=== PATIENT | male | born 1980 | race Caucasian/White ===

== ENCOUNTER → 2020-09-13 08:39 | Outpatient (CLI) | payer BC, SELFPAY ==
--- NOTE | ~2020-09-13 | MR_ITS ---
EXAMINATION: MR knee RT wo con DATE: 09/13/2020 09:15 INDICATION: Right knee pain TECHNIQUE: Magnetic resonance imaging (MRI) of the right knee was performed without intravenous contr ast. Sequences included coronal PD-weighted FSE, coronal PD-weighted FS FSE, sagittal T2-weighted FS E, sagittal PD-weighted FS FSE and axial PD weighted fat saturated FSE. COMPARISON: None. FINDINGS: Medial compartment: Longitudinal horizontal tear extending to the inferior articular surface of the body and posterior ho rn of the medial meniscus. There is a multilobulated para meniscal cyst extending approximately 3.4 c m medial to lateral along the posterior margin of the posterior horn and measuring up to 10 x 8 mm in maximal orthogonal dimensions. Partial-thickness chondral ulceration at the anterior weightbearing m edial femoral condyle where it involves greater than 50% the cartilage thickness and with shallow cho ndral ulceration and fissuring at the central weightbearing medial femoral condyle. Mild partial thic kness cartilage loss with smooth chondral surface along the medial tibial plateau. Lateral compartment: Lateral meniscus is normal. Shallow chondral fissuring at the central aspect of the lateral tibial pl ateau. Mild partial thickness cartilage loss with smooth chondral surface along the posterior weightb earing lateral femoral condyle. Patellofemoral compartment: Deep chondral fissuring without degenerative subchondral changes at the trochlear groove and lateral aspect of the medial trochlea. Cartilage at the patella and lateral trochlea is normal. Ligaments and tendons: Anterior and posterior cruciate ligaments are normal. The fibular collateral ligament complex is norm al. Thickening and increased signal consistent with partial tear/moderate grade sprain of the deep me niscal femoral portion of the medial collateral ligament. The more superficial medial collateral liga ment remains normal. The extensor mechanism is normal. The visualized medial and lateral hamstring te ndons as well as the iliotibial band are normal. Fluid: Physiologic amount of fluid in the joint space. No loose osteochondral bodies identified. Small to mo derate-sized Francis's cyst measuring 5.6 cm proximal to distal and 2.7 x 0.8 cm in maximal orthogonal dimensions. Osseous/other: There are a few small low signal intensity bone islands in the distal femur and proximal tibia. Marro w signal is otherwise unremarkable. No fracture or pathologic marrow replacing process. IMPRESSION: 1. Moderate grade sprain/partial tear of the meniscal femoral component of the deep medial collateral ligament. Line 2. Longitudinal horizontal tear of the body and posterior horn of the medial meniscus with para menis titi cyst along the periphery of the posterior horn. 3. Mild tricompartmental osteoarthritis with regions of moderate grade chondromalacia in all 3 compar tments. 4. Small to moderate-sized Francis's cyst. Reviewed, dictated and finalized at location A. IMPRESSION: 1. Moderate grade sprain/partial tear of the meniscal femoral component of the deep medial collateral ligament. Line 2. Longitudinal horizontal tear of the body and posterior horn of the medial me niscus with para meniscal cyst along the periphery of the posterior horn. 3. Mild tricompartmental osteoarthritis with regions of moderate grade chondrom alacia in all 3 compartments. 4. Small to moderate-sized Francis's cyst.
== END ==
PROVIDERS: PCP Internal Medicine; Visit Provider Physician Assistant Medical
DX: M25.561 Pain in right knee (principal); S83.241A Other tear of medial meniscus, current injury, right knee, initial encounter; M17.11 Unilateral primary osteoarthritis, right knee; M94.261 Chondromalacia, right knee; M71.21 Synovial cyst of popliteal space [Baker], right knee
CPT/HCPCS: 73721

== ENCOUNTER → 2021-02-11 00:32 | Outpatient (CLI) | payer BC, SELFPAY ==
[2021-02-11 18:23] LABS: SARS-CoV-2 RNA PCR Negative
== END ==
PROVIDERS: PCP Internal Medicine; Visit Provider Orthopaedic Surgery
DX: Z01.812 Encounter for preprocedural laboratory examination (principal); Z20.822 Contact with and (suspected) exposure to COVID-19
CPT/HCPCS: C9803; U0003; U0005

== ENCOUNTER 2021-02-14 01:46 | Day surgery (SDC) | payer BC, SELFPAY ==
[2021-02-07 10:25] VITALS: BMI 36.6
[2021-02-14] VITALS (9 sets, daily range): BP systolic 138–168; BP diastolic 70–95; PULSE 70–86; RESP 14–16; TEMP 36.6; O2SAT 98–100
--- NOTE | 2021-02-14 07:35 | WPDHPUPDATE1 ---
History and Physical Update Update Date/Time: 02/14/21 07:35 History and Physical has been reviewed, including an updated exam of the patient. There are NO changes in the patient's condition. Risks, benefits, and alternatives have been discussed and questions answered. Patient agrees to proceed with procedure.
--- NOTE | 2021-02-14 12:14 | ECG_ITS ---
Measurements Intervals [place] Rate: 81 P: 42 [place]: 163 QRS: 37 QRSD: 94 T: 40 QT: 360 QTc: 419 Interpretive Statements SINUS RHYTHM BASELINE ARTIFACT- II, III NORMAL ECG Electronically Signed On 02-14-2021 13:03:18 CDT by Tiburcio Souza D.O.
[2021-02-14] MEDS: CELECOXIB 200 MG CAPSULE PO (12:37)
[2021-02-14] MEDS: ACETAMINOPHEN 500 MG TABLET 1000 MG PO (12:38)
--- NOTE | 2021-02-14 13:07 | WPDANESEPPF ---
Anes - Initial Pre Proc Eval Procedure: Operation Date: 02/14/21 14:00 Proposed Procedures p Right Knee Arthroscopy - Aly Morales MD Date/Time: 02/14/21 13:07 Surgeon: Aly Morales MD Pre Op Diagnosis: right medial meniscus tear Patient Data Age: 40 Gender: M Height: 1.96 m Weight: 138.7 kg Allergies Allergy/AdvReac Type Severity Reaction Status Date / Time No Known Allergies Allergy Mild Verified 02/14/21 12:09 Home Medications Medication Instructions Recorded Confirmed Type lisinopril-hydrochlorothiazide 1 tablet PO DAILY 02/07/21 02/14/21 History Laboratory Tests 02/14/21 12:30 Sodium Pending Potassium Pending Chloride Pending Carbon Dioxide Pending Anion Gap Pending BUN Pending Creatinine Pending Estim Creat Clear Calc Pending Estimated GFR Pending Glucose Pending Calcium Pending Patient hx anesthesia problems: none Family hx anesthesia problems: none Results Review: All pre-operative results and documents have been reviewed as part of the pre-operative evaluation. [facility] Past Medical History Medical History Hx of migraines Hypertension Medial meniscus tear TRACI (obstructive sleep apnea) Right knee pain Surgical History Surgical History History of hand surgery Family History Family History Other Diabetes mellitus Heart disease Hypertension Neuropathy Social History Social History Smoking packs per day: 1 Smoking cigarettes per day: 20.0 Years smoked: 15 Smoking pack-years: 15.00 Tobacco type: cigarettes Alcohol intake: current Drinks per week: 10 Alcohol use details: 5-10 ON WEEKENDS Substance use: never Substance use type: does not use Other substance usage details: SMOKE Last use: 02/04/21 Living arrangements: with family Additional living arrangements comments: CHILDREN Gender identity (if verbalized by the patient): Male Spiritual care concerns: No Anes - Eval Final PreProcedure Day of Procedure 02/14/21 13:07 Patient weight: obese Heart: regular rate and rhythm Lungs: clear to auscultation Airway: Mallampati scale class II Neurological: alert and oriented Last oral intake: >/= 8 hours ASA classification: III Emergent: no Anesthetic plan: proceed Anesthesia type and monitoring: general LMA and standard monitoring Results Review: All pre-operative results and documents have been reviewed as part of the pre-operative evaluation. Informed Consent: The patient's anesthetic plan and its attendant risks and benefits were discussed with the patient/family/POA. Questions were solicited and answers provided to the satisfaction of the patient/family/POA.
[2021-02-14] MEDS: ceFAZolin 3 GM/D5W 100 ML 100 ML IVPB (13:30)
[2021-02-14] MEDS: BUPIVACAINE HCL 0.5% PF 30 ML VIAL INFILTRATE (13:53)
[2021-02-14] MEDS: LACTATED RINGERS 1,000 ML 30 ML IV CONT ×2 (14:54→15:41)
[2021-02-14] MEDS: fentaNYL CITRATE INJ (*CRX) 100 MCG/2 ML VIAL 25 MCG IV PUSH ×4 (15:17→15:29)
--- NOTE | 2021-02-14 15:21 | W.PM.PROC2 ---
Procedure Note - Detailed Date of Procedure 02/14/21 Pre-op Diagnosis right medial meniscus tear Post-op Diagnosis same Procedure Performed RIGHT KNEE SCOPE Surgeon Aly Morales MD Anesthesia general Description of Procedure PATIENT WAS TAKEN TO THE OR. THE RIGHT LEG WAS PREPPED AND DRAPED STERILE. TROCARS WERE PLACED IN THE USUAL FASHION. CAMERA WAS INTRODUCED. THERE WAS CHONDROMALACIA TO THE PATELLA FEMORAL JOINT. THERE WAS A LOT OF SYNOVITIS IN ALL COMPARTMENTS. THE MEDIAL COMPARTMENT SHOWED CHONDROMALACIA TO THE MEDIAL FEMORAL CONDYLE. A SHAVER WAS USED TO PREFORM A CHONDROPLASTY. THERE WAS A COMPLEX MEDIAL MENISCUS TEAR. THE TEAR WAS RESECTED WITH A BITER AND A SHAVER DOWN TO A SMOOTH BASE. ABOUT 30% OF THE MENISCUS WAS REMOVED. THE ACL WAS INTACT. THE LATERAL MENISCUS WAS TORN AT THE ANTERIOR HORN. THE TEAR WAS RESECTED. THE LATERAL COMPARTMENT HAD NO CHONDROMALACIA AT THE LATERAL PLATEAU OR LATERAL FEMORAL CONDYLE. CHONDROPLASTY WAS PREFORMED. THE PATELLO FEMORAL JOINT UNDERWENT CHONDROPLASTY. THERE WAS GRADE 3 CHONDROMALACIA IN MOST OF THE TROCHLEA AND PART OF THE PATELLA. SYNOVECTOMY WAS PREFORMED IN THE SUPERIOR MEDIAL COMPARTMENT. THE WOUNDS WERE APPROXIMATED WITH 4.0 NYLON. STERILE DRESSING WAS APPLIED. PATIENT WAS EXTUBATED. Estimated Blood Loss -10.0 Complications No immediate complications Condition stable Disposition PACU
[2021-02-14] MEDS: oxyCODONE HCL (*CRX) 5 MG TAB IR PO (16:46)
== END 2021-02-14 17:13 | disposition home or self-care (01) ==
PROVIDERS: PCP Internal Medicine; Visit Provider Orthopaedic Surgery
PROC: (CPT 29870; principal; 2021-02-14 14:00)
DX: M23.203 Derangement of unspecified medial meniscus due to old tear or injury, right knee (principal); M23.241 Derangement of anterior horn of lateral meniscus due to old tear or injury, right knee; M22.41 Chondromalacia patellae, right knee; I10 Essential (primary) hypertension; G47.33 Obstructive sleep apnea (adult) (pediatric); M25.561 Pain in right knee; F17.210 Nicotine dependence, cigarettes, uncomplicated; E66.9 Obesity, unspecified; Z68.36 Body mass index [BMI] 36.0-36.9, adult
CPT/HCPCS: 29880; 36415; 93005; A9270; C9803; J0690; J1100; J2250; J2405; J2704; J3010; J7120; U0003; U0005

== ENCOUNTER 2021-02-21 10:50 | Outpatient (CLI) | payer BC, SELFPAY ==
--- NOTE | ~2021-02-21 | US_ITS ---
EXAMINATION: US venous doppler LE RT DATE: 02/21/2021 11:26 INDICATION: Right calf pain. TECHNIQUE: Grayscale ultrasound images without and with compression and Doppler ultrasound images of the right lower extremity veins were obtained. COMPARISON: None. FINDINGS: The visualized portions of right common femoral vein, profunda (deep) femoral vein, and greater saphe nous vein outflow are patent. There is thrombus in the right femoral, popliteal, peroneal, and accountant tax ior tibial veins. IMPRESSION: 1. Acute deep vein thrombosis involving the right femoral, popliteal, peroneal, and posterior tibial veins. Reviewed, dictated and finalized at location A. E [employer] WORK[employer] IMPRESSION: 1. Acute deep vein thrombosis involving the right femoral, popliteal, peroneal , and posterior tibial veins.
== END 2021-02-21 10:51 | disposition home or self-care (01) ==
LOC: ANHIMG 10:54
PROVIDERS: PCP Internal Medicine; Visit Provider Orthopaedic Surgery
DX: M79.661 Pain in right lower leg (principal); I82.411 Acute embolism and thrombosis of right femoral vein; I82.431 Acute embolism and thrombosis of right popliteal vein; I82.441 Acute embolism and thrombosis of right tibial vein
CPT/HCPCS: 93971